=== PATIENT | female | born 1965 | race Caucasian/White ===

== ENCOUNTER → 2020-07-19 | Outpatient (CLI) | payer OTHER ==
[~2020-07-19] MED LIST: AZITHROMYCIN250 MG PO; BIAXIN 250MG T250 MG PO; COMBIVENT0.074 GM/I INH; FLEXERIL 10 MG10 MG PO; IBUPROFEN800 MG PO; PREDNISONE20 MG PO; SINGULAIR10 MG PO; SYMBICORT 16010.2 GM INH; SYNTHROID25 MCG PO; TESSALON PERLE100 MG PO
== END ==
LOC: LAB 21:54
DX: Z02.83 Encounter for blood-alcohol and blood-drug test (principal)
CPT/HCPCS: 36415

== ENCOUNTER 2020-08-31 15:16 | Emergency (ER) | payer OTHER | END 2020-08-31 15:20 | disposition left against medical advice (07) | LOC: ER1 15:16 | DX: Z53.21 Procedure and treatment not carried out due to patient leaving prior to being seen by health care provider (principal) ==